=== PATIENT | female | born 1965 | race Caucasian/White ===

== ENCOUNTER → 2016-11-22 | Outpatient (CLI) | payer MEDICARE ==
[~2016-11-22] MED LIST: ALBUTEROL17 GM INH; AMOXICILLIN500 M1 PO; CALCIUM 500 +1 EAC2 PO; FISH OIL 1,0001 EAC1 PO; GABAPENTIN300 M2 PO; KLONOPIN1 MG PO; LEVAQUIN750 MG PO; METFORMIN PO; NAPROXEN PO; NEURONTIN300 MG PO; PHENERGAN DM1 ML PO; PREDNISONE PO; PROZAC PO; PROZAC40 M1 PO; SIMVASTATIN10 MG PO; SKELAXIN PO; SYMBYAX PO; SYNTHROID PO; SYNTHROID0.1 MG PO; TYLENOL325 M1 PO; VISTARIL PO; ZOCOR20 MG PO
--- NOTE | ~2016-11-22 | MY11 ---
[facility] A Service of [facility] & [facility] RADIOLOGY TEXT RESULTS PATIENT: PIEDAD MELENDEZ LOCATION: [facility] : 61 UNIT #: [id number] AGE: [address]: Gibson Ford MD SEX: F ORDER DR: [id number] [facility] [address] [place], [place] [address] [id number] O MR#: [id number] Acc #: [id number] NAME: PIEDAD MELENDEZ : 1965 SEX: F STUDY DATE/TIME: 11/22/2016 14:01 UNIT: [facility] ROOM: STUDY DESCRIPTION: MY Mammogram Screening Dig Johnathon Attending Physician: Gibson Ford M.D. Referring Physician: Awilda Lobato M.D. Ordering Physician: Gibson Ford M.D. Primary Care Physician: Awilda Lobato M.D. MEDICAL IMAGING REPORT This report is preliminary unless electronic signature is present EXAM Digital screening mammogram 11/22/2016 HISTORY 51-year-old woman, no risk elevation. Annual screen. COMPARISON STUDIES Comparison mammograms date to 09/18/2011 with most recent 11/03/2015. FINDINGS Digital imaging of each breast was completed utilizing standard craniocaudal and mediolateral-oblique projections. Review and interpretation of digital mammograms include a second review in conjunction with FDA-approved CAD device. There is an overall increase in the parenchymal presentation bilaterally with a generalized fibronodular pattern in each breast. There are no breast masses and I see no asymmetry in the parenchymal presentation. There are no suspicious microcalcifications and I see no architectural disturbance. IMPRESSION Benign mammogram. One-year followup recommended. Patients over the age of 40 are entered into a reminder system with target due date for the next mammogram. A result letter will also be sent to the patient. BIRADS: 2 Benign finding Dictated by... Jm Mar M.D. THIS IS AN ELECTRONICALLY VERIFIED REPORT Jm Mar M.D. at 11/23/2016 8:08 AM [facility] A Service of [facility] & [facility] RADIOLOGY TEXT RESULTS PATIENT: PIEDAD MELENDEZ LOCATION: [facility] : 61 UNIT #: [id number] AGE: [address]: Gibson Ford MD SEX: F ORDER DR: Allison TD: 11/22/2016 18:35 JOB #: [id number] MEDICAL IMAGING REPORT Page 1 of 1 COPY
== END | disposition home or self-care (01) ==
LOC: CWCC 13:50
DX: Z12.31 Encounter for screening mammogram for malignant neoplasm of breast (principal)
CPT/HCPCS: G0202

== ENCOUNTER → 2017-03-11 | Outpatient (CLI) | payer MEDICARE ==
--- NOTE | ~2017-03-11 | MR32 ---
[facility] A Service of [facility] RADIOLOGY TEXT RESULTS PATIENT: PIEDAD MELENDEZ LOCATION: [facility] : 61 UNIT #: [id number] AGE: [address]: Moe Escobar PA-C SEX: F ORDER DR: [id number] [place] [id number] O MR#: [id number] Acc #: [id number] NAME: PIEDAD MELENDEZ : 1965 SEX: F STUDY DATE/TIME: 03/11/2017 13:52 UNIT: [facility] ROOM: STUDY DESCRIPTION: MR Cervical Wo Contrast Attending Physician: Moe Escobar P.A.-C. Referring Physician: Moe Escobar P.A.-C. Ordering Physician: Moe Escobar P.A.-C. Primary Care Physician: Awilda Lobato M.D. MRI CENTER REPORT This report is preliminary unless electronic signature is present. EXAM Cervical spine MRI, no contrast, 03/11/2017. PROCEDURE Routine cervical spine MRI without contrast. COMPARISON None HISTORY Chronic neck pain and chronic low back pain with right leg tingling paresthesias. FINDINGS There is a slight reversal of lordosis, but no substantial debbie or retrolisthesis. The paraspinous soft tissues are normal. Cord signal is normal. There are mild chronic degenerative bone marrow signal changes, but no evidence of acute marrow edema, infiltration or replacement. At C2-3, the canal and foramina are normal. At C3-4, the canal and foramina are normal. At C4-5, the canal and foramina are normal. At C5-6, there is mild canal stenosis and borderline to mild right and [id number]-ok-ytwilsip or moderate left foraminal stenosis. At C6-7, there is borderline canal stenosis and borderline to mild right and mild or [id number] left foraminal stenosis. [facility] A Service of [facility] RADIOLOGY TEXT RESULTS PATIENT: PIEDAD MELENDEZ LOCATION: [facility] : 61 UNIT #: [id number] AGE: [address]: Moe Escobar PA-C SEX: F ORDER DR: At C7-T1, the canal and foramen are normal. IMPRESSION Mild discogenic changes at several levels. There is mild canal and left greater than right foraminal stenosis at C5-C6 and C6-C7, but there is no cord compression or abnormal cord signal at any level. Dictated by... Jeremy Barber M.D. THIS IS AN ELECTRONICALLY VERIFIED REPORT Jeremy Barber M.D. at 03/15/2017 4:07 PM JORGE A/elizabeth TD: 03/12/2017 13:56 JOB #: [id number] MRI CENTER REPORT Page 1 of 1
--- NOTE | ~2017-03-11 | MR113 ---
[facility] A Service of [facility] RADIOLOGY TEXT RESULTS PATIENT: PIEDAD MELENDEZ LOCATION: [facility] : 61 UNIT #: [id number] AGE: [address]: Moe Escobar PA-C SEX: F ORDER DR: [id number] [place] [id number] O MR#: [id number] Acc #: [id number] NAME: PIEDAD MELENDEZ : 1965 SEX: F STUDY DATE/TIME: 03/11/2017 14:25 UNIT: [facility] ROOM: STUDY DESCRIPTION: MR Lumbar Wo Contrast Attending Physician: Moe Escobar P.A.-C. Referring Physician: Moe Escobar P.A.-C. Ordering Physician: Moe Escobar P.A.-C. Primary Care Physician: Awilda Lobato M.D. MRI CENTER REPORT This report is preliminary unless electronic signature is present. EXAM Lumbar spine MRI without contrast DATE: 03/11/2017 CLINICAL HISTORY Numbness, tingling and shooting pains into right leg. FINDINGS Alignment is normal and bone marrow signal is normal. The distal cord and conus are normal in position and appearance and the paraspinous soft tissues are normal with the exception of possible cholelithiasis. At L1-2, the disc canal and foramina are normal. At L2-3, the disc canal and foramina are normal. At L3-4, there is a disc bulge and facet arthropathy and borderline canal narrowing, and mild or odnx-uu-husvymvi right and moderate left foraminal stenosis. At L4-5, there is a slight disc bulge and facet arthropathy. There is no canal stenosis but there is borderline to mild right and mild left foraminal stenosis. At 5-1, there is some facet arthropathy but no canal stenosis and there is borderline left but no right foraminal stenosis. IMPRESSION Degenerative changes as above. No acute appearing abnormality at any level. See above for level by level details. Overall foraminal narrowing [facility] A Service of [facility] RADIOLOGY TEXT RESULTS PATIENT: PIEDAD MELENDEZ LOCATION: [facility] : 61 UNIT #: [id number] AGE: [address]: Moe Escobar PA-C SEX: F ORDER DR: is most pronounced on the left and 3-4 and on the right at 3-4 as well. Dictated by... Jeremy Barber M.D. THIS IS AN ELECTRONICALLY VERIFIED REPORT Jeremy Barber M.D. at 03/15/2017 4:08 PM JORGE A/marcin TD: 03/12/2017 17:11 JOB #: [id number] MRI CENTER REPORT Page 1 of 1
== END | disposition home or self-care (01) ==
LOC: SMRI 12:53
DX: M47.12 Other spondylosis with myelopathy, cervical region (principal); M54.41 Lumbago with sciatica, right side; M62.81 Muscle weakness (generalized); M48.02 Spinal stenosis, cervical region; M47.896 Other spondylosis, lumbar region; M99.83 Other biomechanical lesions of lumbar region; M46.96 Unspecified inflammatory spondylopathy, lumbar region; M51.16 Intervertebral disc disorders with radiculopathy, lumbar region; M48.06 Spinal stenosis, lumbar region
CPT/HCPCS: 72141; 72148